=== PATIENT | male | born 1975 | race Caucasian/White ===

== ENCOUNTER 2017-01-23 21:12 | Inpatient (IN) | payer MEDICAID ==
[~2017-01-23] VITALS: Ht 172.7 cm; Wt 102.3 kg
[2017-01-23 22:47] LABS: BASOPHIL % 0.4 % (0-2); PLATELET COUNT 400 x10^3mcL (130-400)
[2017-01-23 23:02] LABS: ALBUMIN 3.9 g/dL (3.4-5.0); ALKALINE PHOSPHATASE 108 U/L (46-116); ALT/SGPT 54 U/L (16-63); AST/SGOT 36 U/L (15-37); CALCIUM 8.8 mg/dL (8.5-10.1); CHLORIDE SERUM 102 mmol/L (98-107); CREATININE SERUM 1.7 mg/dL (0.7-1.3); GFR1 48 mL/min; GLUCOSE SERUM 149 mg/dL (74-106); POTASSIUM SERUM 3.4 mmol/L (3.5-5.1); SODIUM SERUM 133 mmol/L (136-145); TOTAL PROTEIN, SERUM 8.2 g/dL (6.4-8.2)
[2017-01-23 23:03] LABS: RED CELL DISTRIBUTION WIDTH 14.8 % (11.5-14.5)
[2017-01-23 23:28] LABS: CARBON DIOXIDE 11.1 mmol/L (21-32)
[2017-01-23] MEDS ORDERED: DILANTIN100 MG PO (23:53)
[2017-01-24] VITALS (9 sets, daily range): BP systolic 101–135; BP diastolic 68–87
[2017-01-24 00:57] LABS: MAGNESIUM 2.8 mg/dL (1.8-2.4); PHOSPHOROUS 4.8 mg/dL (2.5-4.9)
[2017-01-24 01:08] LABS: FREE T4 0.64 ng/dL (0.76-1.46); FREE THYROXINE INDEX 1.6 ug/dL (1.4-4.5); T4(THYROXINE) 4.7 ug/dL (4.7-13.3)
[2017-01-24 01:09] LABS: T3 TOTAL 0.93 ng/mL
[2017-01-24 06:29] LABS: BASOPHIL % 0.3 % (0-2); PLATELET COUNT 257 x10^3mcL (130-400); RED CELL DISTRIBUTION WIDTH 14.4 % (11.5-14.5)
[2017-01-24 06:31] LABS: CALCIUM 8.2 mg/dL (8.5-10.1); CARBON DIOXIDE 22.9 mmol/L (21-32); CHLORIDE SERUM 109 mmol/L (98-107); CREATININE SERUM 1.2 mg/dL (0.7-1.3); GFR1 > 60 mL/min; GLUCOSE SERUM 107 mg/dL (74-106); POTASSIUM SERUM 4.3 mmol/L (3.5-5.1); SODIUM SERUM 140 mmol/L (136-145)
[2017-01-24 06:42] LABS: rbc morphology (normal/abnorm) ABNORMAL (NORMAL)
[2017-01-24 11:30] LABS: microscopic required? NO
[2017-01-24 11:36] LABS: urine erythrocyte NEGATIVE (NEGATIVE)
[2017-01-24 11:52] LABS: AMPHETAMINE QUAL UR NONE DETECTED (NEG <=1000)
[2017-01-24] MEDS ORDERED: NATURAL IRON65 MG PO (18:07)
[2017-01-24] MEDS ORDERED: CETIRIZINE HYDR10 MG PO (18:07)
[2017-01-24] MEDS ORDERED: LOP600 PO (18:08)
[2017-01-25 05:16] VITALS: BP 114/75
[2017-01-25 07:44] LABS: BASOPHIL % 0.4 % (0-2); PLATELET COUNT 248 x10^3mcL (130-400)
[2017-01-25 07:52] LABS: RED CELL DISTRIBUTION WIDTH 14.8 % (11.5-14.5)
[2017-01-25 07:55] LABS: rbc morphology (normal/abnorm) ABNORMAL (NORMAL)
[2017-01-25 08:14] LABS: CHLORIDE SERUM 107 mmol/L (98-107); CREATININE SERUM 1.2 mg/dL (0.7-1.3); GFR1 > 60 mL/min; GLUCOSE SERUM 103 mg/dL (74-106); POTASSIUM SERUM 4.3 mmol/L (3.5-5.1); SODIUM SERUM 141 mmol/L (136-145)
[2017-01-25 08:45] VITALS: BP 130/68
[2017-01-25] MEDS ORDERED: NAPROSYN500 MG PO (12:12)
[2017-01-25 12:33] VITALS: BP 130/68
[2017-01-25] MEDS ORDERED: DILANTIN100 MG PO (13:04)
[2017-01-25] MEDS ORDERED: BACTRIM DS1 TAB PO (13:08)
[2017-01-25] MEDS ORDERED: LAC PO (13:10)
== END 2017-01-25 13:25 | disposition home or self-care (01) | DRG 53 ==
LOC: ED 21:12 → DU 23:32 → MU 23:32 → DU 01-24 00:15 → MU 01-24 10:06
PROVIDERS: Emergency Medicine; ADMIT Family Medicine
DX: G40.909 Epilepsy, unspecified, not intractable, without status epilepticus (principal); E87.1 Hypo-osmolality and hyponatremia; E83.41 Hypermagnesemia; E83.51 Hypocalcemia; D50.9 Iron deficiency anemia, unspecified; F10.10 Alcohol abuse, uncomplicated; T42.0X6A Underdosing of hydantoin derivatives, initial encounter; S51.011A Laceration without foreign body of right elbow, initial encounter; E87.6 Hypokalemia; M10.9 Gout, unspecified; Z91.14 Patient's other noncompliance with medication regimen; W22.8XXA Striking against or struck by other objects, initial encounter; Y92.009 Unspecified place in unspecified non-institutional (private) residence as the place of occurrence of the external cause
CPT/HCPCS: 82962; 84439; G0480; J1165; J2060; J2916; J3480; J3490; J7030